=== PATIENT | male | born 1985 | race African-American/Black ===

== ENCOUNTER 2018-03-09 08:44 | Emergency (ER) | payer SELFPAY ==
[~2018-03-09] VITALS: Ht 170.2 cm; Wt 61.2 kg
[2018-03-09 08:33] VITALS: BP 127/83
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
--- NOTE | 2018-03-09 10:16 | Diagnostic Imaging Report ---
Indication: Trauma Technique: Continuous helical CT scanning of the head was performed utilizing automated exposure control without intravenous contrast material. Axial and coronal reconstructions were obtained. Comparison: None CT dose: Total DLP 1438.93 mGycm; CTDI vol 70.38 mGy Findings: There is no acute intracranial hemorrhage, mass effect or cortical edema. The ventricles, cisterns and sulci are within normal limits for age. Rushing-white differentiation is preserved. Visualized mastoid air cells and paranasal sinuses are unremarkable. No focal lesions of the bony calvarium or soft tissues of the scalp are seen. IMPRESSION: No evidence of acute intracranial hemorrhage, mass effect or cortical edema. No acute osseous abnormality. The CT scanner at [facility] is accredited by the [employer] and the scans are performed using protocols designed to limit radiation exposure to as low as reasonably achievable to attain images of sufficient resolution adequate for diagnostic evaluation.
--- NOTE | 2018-03-09 10:32 | Diagnostic Imaging Report ---
Indication: Trauma Technique: CT cervical spine was performed utilizing automated exposure control without intravenous contrast material. Axial, sagittal and coronal images were generated. CT dose: Total DLP 427.14 mGycm; CTDI vol 18.83 mGy Comparison: None Findings: No abnormal cervical curvature on coronal views. There is mild straightening of the cervical lordosis on sagittal views which may be related to positioning or muscle spasm. There is no evidence of spondylolisthesis. No acute fractures identified. Vertebral body and disc spaces are within normal limits. No significant bony central canal stenosis or significant bony foraminal narrowing. Please note that the cord and discs are better evaluated on MRI, which can be obtained for further evaluation as clinically indicated. No prevertebral soft tissue collection/abnormality is identified. Visualized airways widely patent. Thyroid and is imaged lung apices unremarkable imaged portions of the mastoid air cells clear. IMPRESSION: * No acute cervical spine fracture. * Very mild straightening of the cervical lordosis likely related to positioning or muscle spasm. The CT scanner at [facility] is accredited by the [employer] and the scans are performed using protocols designed to limit radiation exposure to as low as reasonably achievable to attain images of sufficient resolution adequate for diagnostic evaluation.
[2018-03-09] MEDS ORDERED: CYCLOBENZAPRINE10 MG ORAL (10:39)
[2018-03-09] MEDS ORDERED: IBUPROFEN800 MG ORAL (10:39)
[2018-03-09 11:04] VITALS: BP 118/76
== END 2018-03-09 11:06 | disposition home or self-care (01) ==
LOC: EDBD 08:44 → EMR 09:40
DX: S13.4XXA Sprain of ligaments of cervical spine, initial encounter (principal); V43.52XA Car driver injured in collision with other type car in traffic accident, initial encounter; Y92.411 Interstate highway as the place of occurrence of the external cause
CPT/HCPCS: 70450; 72125; 99284